=== PATIENT | male | born 1980 | race Caucasian/White ===

== ENCOUNTER 2016-07-25 13:23 | Emergency (ER) | payer SELFPAY ==
[~2016-07-25] VITALS: Ht 175.3 cm; Wt 90.0 kg
[2016-07-25 13:27] VITALS: BP 134/74
[2016-07-25] MEDS ORDERED: ACETAMINOPHEN 325MG TABLET PO ONE (14:30)
== END 2016-07-25 15:12 | disposition home or self-care (01) ==
LOC: ER 13:41
DX: M25.511 Pain in right shoulder (principal)
CPT/HCPCS: 73030; 99284